=== PATIENT | male | born 1990 | race American Indian/Alaskan Native ===

== ENCOUNTER 2022-01-02 21:12 | Emergency (ER) | payer SELFPAY ==
[2022-01-02 21:35] VITALS: BP 122/80
--- NOTE | 2022-01-04 12:33 | Electrocardiograph Report ---
[facility] Test Date: 2022-01-02 Test Time: 21:38:42 Pat Name: SAGAR FONTANA Department: Room: Gender: M [facility]: SEBAS : 1990 Requested By: BARBY SPAIN Order Number: [id number] Reading MD: Orquidea Morales Measurements Intervals [place] Rate: 84 P: 24 CO: 141 QRS: 70 QRSD: 85 T: 56 QT: 350 QTc: 414 Interpretive Statements Sinus rhythm Normal ECG No previous ECG available for comparison Electronically Signed On 01-04-2022 12:33:34 EDT by Orquidea Morales
== END 2022-01-03 05:42 | disposition home or self-care (01) ==
LOC: ED 21:12
DX: R07.9 Chest pain, unspecified (principal); Z53.21 Procedure and treatment not carried out due to patient leaving prior to being seen by health care provider
CPT/HCPCS: 82962; 93005